=== PATIENT | female | born 1970 | race American Indian/Alaskan Native ===

== ENCOUNTER 2018-12-31 15:42 | Emergency (ER) | payer SELFPAY ==
--- NOTE | 2018-12-31 16:02 | Event Note ---
ED Screening Note ED Screening Note: pt presents with substernal CP that began this morning states it feels like tightness +nausea no vomiting states it hurts to breathe no recent long car or plane ride no hormone use PMHx HTN, TB, migraines, PUD, heart murmur +occ drinker no tobacco no drug use This initial assessment/diagnostic orders/clinical plan/treatment(s) is/are subject to change based on patients health status, clinical progression and re- assessment by fellow clinical providers in the ED. Further treatment and workup at subsequent clinical providers discretion. Patient/guardian urged not to elope from the ED as their condition may be serious if not clinically assessed and managed. Initial orders include: cp protocol
[2018-12-31 16:34] LABS: Basophils % (Auto) 0.5 % (0.0-1.8); Eosinophils # (Auto) 0.1 K/mm3 (0.0-0.4); Eosinophils % (Auto) 0.8 % (0.0-4.3); Hematocrit 37.8 % (30.3-42.9); Hemoglobin 12.7 gm/dl (10.1-14.3); Lymphocytes # (Auto) 2.6 K/mm3 (1.2-5.4); Mean Corpuscular HGB Conc 34 % (30-34); Mean Corpuscular Volume 97 fl (79-97); Monocytes # (Auto) 0.5 K/mm3 (0.0-0.8); Monocytes % (Auto) 7.1 % (0.0-7.3); Platelet Count 215 K/mm3 (140-440); Red Cell Distribution Width 13.8 % (13.2-15.2)
[2018-12-31 16:44] LABS: INR 1.05 (0.87-1.13)
[2018-12-31 16:45] LABS: Partial Thromboplastin Time 28.1 Sec. (24.2-36.6)
[2018-12-31 16:53] LABS: Alanine Aminotransferase 19 units/L (7-56); BUN/Creatinine Ratio 11; Blood Urea Nitrogen 8 mg/dL (7-17); Calcium 8.9 mg/dL (8.4-10.2); Hemolysis Index 21
--- NOTE | 2018-12-31 18:22 | XRay Report ---
CHEST 2 VIEWS INDICATION / CLINICAL INFORMATION: Chest Pain. Difficulty breathing and nausea. COMPARISON: None available. FINDINGS: SUPPORT DEVICES: None. HEART / MEDIASTINUM: The heart size and pulmonary vasculature are normal. The aorta is normal in maira dedra. LUNGS / PLEURA: No significant pulmonary or pleural abnormality. No pneumothorax. ADDITIONAL FINDINGS: No significant additional findings. IMPRESSION: No acute findings. Signer Name: Ron Amaya MD Signed: 12/31/2018 6:18 PM Workstation Name: [id number]
[2018-12-31] MEDS ORDERED: LIDOCAINE VISCOUS 2% PO ONE (21:02)
[2018-12-31] MEDS ORDERED: ALUM-MAG HYDROX-SIMETH 200-200-20MG/5ML PO ONE (21:02)
[2018-12-31] MEDS ORDERED: ZOFRAN IV ONE (21:02)
--- NOTE | 2018-12-31 21:12 | Emergency Department Report ---
ED Chest Pain HPI - General Chief Complaint: Chest Pain Stated Complaint: CHEST PAIN/NAUSEA Time Seen by Provider: 12/31/18 15:59 Source: patient Mode of arrival: Ambulatory Limitations: No Limitations - History of Present Illness Initial Comments: Pt presents with substernal CP that began this morning states it feels like tightness +nausea mild diaphoresis, and sob, no vomiting , states it hurts to breathe pain is 5/10 radiates to epigastric and upper back , no recent long car or plane ride , no hormone use , PMHx HTN, TB, migraines,GERD, PUD, heart murmur , +occ drinker, no tobacco, no drug use MD Complaint: chest pain Onset/Timin -: days(s) Onset: during rest, during exertion, after eating Pain Location: substernal, epigastric Pain Radiation: back Severity: moderate Severity scale (0 -10): 5 Quality: sharp Consistency: constant Improves With: nothing Worsens With: inspiration, eating, palpation, movement re: nausea, diaphoresis Other Symptoms: burping Treatments Prior to Arrival: none Aspirin use within the Past 7 Days: (0) No - Related Data On Oral Contraceptives: No Previous Rx's Medication Instructions Recorded Last Taken Type Amoxicillin/Potassium Clav 1 each PO BID #20 tablet 05/16/18 Unknown Rx [Augmentin 875-125 Tablet] Butalb/Acetamin/Caff 50-325-40 1 tab PO Q6HR PRN #10 tab 05/16/18 Unknown Rx [Fioricet] Meclizine [Antivert] 25 mg PO TID PRN #20 tablet 05/16/18 Unknown Rx Methocarbamol [Robaxin-750] 750 mg PO Q6HR PRN #20 tablet 05/16/18 Unknown Rx Naproxen [Naprosyn] 500 mg PO BID #20 tablet 05/16/18 Unknown Rx Famotidine [Pepcid] 20 mg PO BID #60 tablet 12/31/18 Unknown Rx Naproxen [Naprosyn] 500 mg PO BID PRN #30 tablet 12/31/18 Unknown Rx Allergies Allergy/AdvReac Type Severity Reaction Status Date / Time codeine Allergy Hives Verified 12/31/18 15:45 Heart Score - HEART Score History: Moderately suspicious EKG: Normal Age: < 45 Risk factors: 1-2 risk factors Troponin: < normal limit HEART Score: 2 ED Review of Systems ROS: Stated complaint: CHEST PAIN/NAUSEA Other details as noted in HPI Constitutional: denies: chills, fever Eyes: denies: eye pain, eye discharge, vision change ENT: denies: ear pain, throat pain Respiratory: shortness of breath. denies: cough, wheezing Cardiovascular: chest pain. denies: palpitations Endocrine: no symptoms reported Gastrointestinal: denies: abdominal pain, nausea, diarrhea, constipation Genitourinary: denies: urgency, dysuria, discharge Musculoskeletal: back pain. denies: joint swelling, arthralgia Skin: denies: rash, lesions Neurological: denies: headache, weakness, paresthesias Psychiatric: denies: anxiety, depression Hematological/Lymphatic: denies: easy bleeding, easy bruising ED Past Medical Hx - Past Medical History Hx Hypertension: Yes Hx GERD: Yes Hx Headaches / Migraines: Yes Additional medical history: ulcers, - Surgical History Additional Surgical History: tubal ligation - Social History Smoking Status: Never Smoker Substance Use Type: Alcohol - Medications Home Medications: Home Medications Medication Instructions Recorded Confirmed Last Taken Type Amoxicillin/Potassium Clav 1 each PO BID #20 tablet 05/16/18 Unknown Rx [Augmentin 875-125 Tablet] Butalb/Acetamin/Caff 50-325-40 1 tab PO Q6HR PRN #10 tab 05/16/18 Unknown Rx [Fioricet] Meclizine [Antivert] 25 mg PO TID PRN #20 tablet 05/16/18 Unknown Rx Methocarbamol [Robaxin-750] 750 mg PO Q6HR PRN #20 tablet 05/16/18 Unknown Rx Naproxen [Naprosyn] 500 mg PO BID #20 tablet 05/16/18 Unknown Rx Famotidine [Pepcid] 20 mg PO BID #60 tablet 12/31/18 Unknown Rx Naproxen [Naprosyn] 500 mg PO BID PRN #30 tablet 12/31/18 Unknown Rx ED Physical Exam - General Limitations: No Limitations General appearance: alert, in no apparent distress - Head Head exam: Present: atraumatic, normocephalic - Eye Eye exam: Present: normal appearance, PERRL, EOMI - ENT ENT exam: Present: normal exam, mucous membranes moist - Neck Neck exam: Present: normal inspection, full ROM. Absent: tenderness, meningismus, lymphadenopathy, thyromegaly - Respiratory Respiratory exam: Present: normal lung sounds bilaterally. Absent: respiratory distress, wheezes, stridor, chest wall tenderness - Cardiovascular Cardiovascular Exam: Present: regular rate, normal rhythm, normal heart sounds. Absent: systolic murmur, diastolic murmur, rubs, gallop - GI/Abdominal GI/Abdominal exam: Present: soft, tenderness (epigastric ), normal bowel sounds. Absent: distended, guarding, rebound, rigid, bruit, hernia - Rectal Rectal exam: Present: deferred - Extremities Exam Extremities exam: Present: normal inspection, full ROM, normal capillary refill. Absent: tenderness, pedal edema, joint swelling, calf tenderness - Back Exam Back exam: Present: normal inspection, full ROM. Absent: tenderness, CVA tenderness (R), CVA tenderness (L), muscle spasm, paraspinal tenderness, rash noted - Neurological Exam Neurological exam: Present: alert, oriented X3, CN II-XII intact, normal gait, reflexes normal. Absent: motor sensory deficit - Psychiatric Psychiatric exam: Present: normal affect, normal mood - Skin Skin exam: Present: warm, dry, intact, normal color. Absent: rash ED Course Vital Signs 12/31/18 16:00 Temperature 98.2 F Pulse Rate 81 Respiratory 18 Rate Blood Pressure 162/82 O2 Sat by Pulse 99 Oximetry ALBARO score - Albaro Score Age > 65: (0) No Aspirin use within the Past 7 Days: (0) No 3 or more CAD Risk Factors: (0) No 2 or more Angina events in past 24 hrs: (1) Yes Known CAD with more than 50% Stenosis: (0) No Elevated Cardiac Markers: (0) No ST Deviation Greater than 0.5mm: (0) No ALBARO Score: 1 ED Medical Decision Making - Lab Data Result diagrams: 12/31/18 16:12 12/31/18 16:12 Labs 12/31/18 12/31/18 12/31/18 16:12 16:12 16:12 WBC 7.5 RBC 3.90 Hgb 12.7 Hct 37.8 MCV 97 MCH 33 H MCHC 34 RDW 13.8 Plt Count 215 Lymph % (Auto) 34.0 [place] % (Auto) 7.1 Eos % (Auto) 0.8 Baso % (Auto) 0.5 Lymph # 2.6 [place] # 0.5 Eos # 0.1 Baso # 0.0 Seg Neutrophils % 57.6 Seg Neutrophils # 4.3 PT 13.4 INR 1.05 APTT 28.1 D-Dimer 248.84 H Sodium 138 Potassium 3.7 Chloride 103.8 Carbon Dioxide 25 Anion Gap 13 BUN 8 Creatinine 0.7 Estimated GFR > 60 BUN/Creatinine Ratio 11 Glucose 99 Calcium 8.9 Total Bilirubin 0.40 AST 19 ALT 19 Alkaline Phosphatase 56 Troponin T < 0.010 NT-Pro-B Natriuret Pep 17.44 Total Protein 7.7 Albumin 4.0 Albumin/Globulin Ratio 1.1 HCG, Qual 12/31/18 12/31/18 16:12 19:13 WBC RBC Hgb Hct MCV MCH MCHC RDW Plt Count Lymph % (Auto) [place] % (Auto) Eos % (Auto) Baso % (Auto) Lymph # [place] # Eos # Baso # Seg Neutrophils % Seg Neutrophils # PT INR APTT D-Dimer Sodium Potassium Chloride Carbon Dioxide Anion Gap BUN Creatinine Estimated GFR BUN/Creatinine Ratio Glucose Calcium Total Bilirubin AST ALT Alkaline Phosphatase Troponin T < 0.010 NT-Pro-B Natriuret Pep Total Protein Albumin Albumin/Globulin Ratio HCG, Qual Negative - Radiology Data Radiology results: report reviewed, image reviewed Ordering Physician: EMIR BEARD Date of Service: 12/31/18 Procedure(s): XR chest routine 2V Accession Number(s): [id number] cc: EMIR BEARD Fluoro Time In Minutes: CHEST 2 VIEWS INDICATION / CLINICAL INFORMATION: Chest Pain. Difficulty breathing and nausea. COMPARISON: None available. FINDINGS: SUPPORT DEVICES: None. HEART / MEDIASTINUM: The heart size and pulmonary vasculature are normal. The aorta is normal in caliber. LUNGS / PLEURA: No significant pulmonary or pleural abnormality. No pneumothorax. ADDITIONAL FINDINGS: No significant additional findings. IMPRESSION: No acute findings. Signer Name: Ron Amaya MD Signed: 12/31/2018 6:18 PM Workstation Name: [id number] Transcribed By: RT Dictated By: Ron Amaya MD Electronically Authenticated By: Ron Amaya MD Signed Date/Time: 12/31/181817 DD/ 16 TD/TT: Ordering Physician: AVINASH OLIVIA NP Date of Service: 12/31/18 Procedure(s): CT chest w con Accession Number(s): [id number] cc: AVINASH OLIVIA NP CT chest w con INDICATION / CLINICAL INFORMATION: chest pain sob. TECHNIQUE: All CT scans at this location are performed using CT dose reduction for ALARA by means of automated exposure control. COMPARISON: None FINDINGS: Thoracic aortic enhancement and central pulmonary arterial enhancement is normal. No interstitial or airspace pulmonary disease. No pulmonary nodularity. Mediastinal structures are normal. Incidental small hiatal hernia. Limited upper abdominal images and skeletal structures are nonremarkable.. IMPRESSION: 1. Negative thoracic CT scan. Signer Name: Mann Naranjo MD Signed: 12/31/2018 10:48 PM Workstation Name: [id number] Transcribed By: GA Dictated By: Mann Naranjo MD Electronically Authenticated By: Mann Naranjo MD Signed Date/Time: 12/31/182247 DD/ 44 TD/TT: - Medical Decision Making cp is resolved to 07/01 ct abd and cxr normal, heart score: 2, ALBARO score 2, Wells PE:1, plan: pepcid, naproxen, follow up with pcp ad 2-3 days return to ed if symptoms worsen. Critical care attestation.: If time is entered above; I have spent that time in minutes in the direct care of this critically ill patient, excluding procedure time. ED Disposition Clinical Impression: Chest pain Qualifiers: Chest pain type: chest pain on breathing Qualified Code(s): R07.1 - Chest pain on breathing; R07.81 - Pleurodynia Disposition: - TO HOME OR SELFCARE Is pt being admited?: No Does the pt Need Aspirin: No Condition: Stable Instructions: Chest Pain (ED), Costochondritis (ED) Prescriptions: Naproxen [Naprosyn] 500 mg PO BID PRN #30 tablet PRN Reason: pain Famotidine [Pepcid] 20 mg PO BID #60 tablet Referrals: BRENNAN MATIAS MD [Primary Care Provider] - 3-5 Days Forms: Work/School Release Form(ED) Time of Disposition: 23:02
--- NOTE | 2018-12-31 22:52 | Cat Scan Report ---
CT chest w con INDICATION / CLINICAL INFORMATION: chest pain sob. TECHNIQUE: All CT scans at this location are performed using CT dose reduction for ALARA by means of automated e xposure control. COMPARISON: None FINDINGS: Thoracic aortic enhancement and central pulmonary arterial enhancement is normal. No interstitial or airspace pulmonary disease. No pulmonary nodularity. Mediastinal structures are normal. Incidental small hiatal hernia. Limited upper abdominal images and skeletal structures are nonremarkable.. IMPRESSION: 1. Negative thoracic CT scan. Signer Name: Mann Naranjo MD Signed: 12/31/2018 10:48 PM Workstation Name: [id number]
[2019-01-01 04:16] VITALS: BP 125/78
== END 2018-12-31 23:10 | disposition home or self-care (01) ==
LOC: ED 15:42
DX: R07.2 Precordial pain (principal); I10 Essential (primary) hypertension; G43.909 Migraine, unspecified, not intractable, without status migrainosus; K21.9 Gastro-esophageal reflux disease without esophagitis; Z98.51 Tubal ligation status; Z79.899 Other long term (current) drug therapy; Z88.5 Allergy status to narcotic agent
CPT/HCPCS: 36415; 71046; 71260; 80053; 83880; 84484; 84703; 85025; 85379; 85610; 85730; 93005; 93010; 96374; 99284; J2405; Q9967